=== PATIENT | female | born 1995 | race Caucasian/White ===

== ENCOUNTER 2019-07-18 00:21 | Emergency (ER) | payer OTHER ==
--- NOTE | 2019-07-18 03:03 | ED ---
Complex/Multi-Sys Presentation - HPI Summary HPI Summary: 24 year old F referred to [facility] by director of health education nurse at [facility] complains of dizziness described as room spinning, nasal congestion, pressure in her head, frontal headache since Tuesday07/14/19. Patient reports nausea since 2 nights ago and 1 night ago. She reports decreased appetite. Patient denies fever, vomiting, burning with urination, visual changes. The patient rates the pain 5/ 10 in severity. Symptoms aggravated by nothing. Symptoms alleviated by Sudafed and Tylenol. Patient states she spoke to an director of health education nurse at [facility] who referred her to the ED. Patient states she has an IUD. PMHx: asthma, seasonal allergies, GERD, and adult acne. - History Of Current Complaint Chief Complaint: EDFluSymptoms Time Seen by Provider: 07/18/19 02:51 Onset/Duration: Lasting Days - 07/14/19, Still Present Timing: Constant Severity Currently: Moderate Aggravating Factor(s): Nothing Alleviating Factor(s): Sudafed, Tylenol - Allergies/Home Medications Allergies/Adverse Reactions: Allergies Allergy/AdvReac Type Severity Reaction Status Date / Time No Known Allergies Allergy Verified 07/18/19 00:28 PMH/Surg Hx/FS Hx/Imm Hx Respiratory History: Reports: Hx Asthma, Hx Seasonal Allergies GI History: Reports: Hx Gastroesophageal Reflux Disease - Surgical History Surgery Procedure, Year, and Place: lip procedure 2019 Infectious Disease History: No Infectious Disease History: Denies: Traveled Outside the [place] in Last 30 Days - Family History Known Family History: Positive: Hypertension - both parents, Other - paternal grandmother with cancer - Social History Alcohol Use: Occasionally Hx Substance Use: No Substance Use Type: Reports: None Hx Tobacco Use: No Smoking Status (MU): Never Smoked Tobacco Review of Systems Negative: Fever Negative: Blurred Vision Positive: Other - nasal congestion Positive: Other - decreased appetite. Negative: Vomiting Negative: burning Neurological: Other - Dizziness, pressure in her head, frontal headache All Other Systems Reviewed And Are Negative: Yes Physical Exam - Summary Physical Exam Summary: General: Well-developed, Well-nourished FEMALE. No acute distress. HEENT: Positive frontal and maxillary sinus pressure Eyes: Conjuctiva normal, PERRL. Ears: TMs within normal limits. Nares: (-) discharge, (-) erythema. Oropharynx: Clear, mucous membranes moist, (-) exudates. Neck: Soft, FROM, (-) lymphadenopathy, (-) thyromegaly, (-) JVD. Cardiovascular: Normal sinus rhythm, (-) murmur. Lungs: Clear to auscultation bilaterally (-) wheezes, (-) rales, (-) rhonchi. Abdomen: Soft, non-tender, non-distended, (-) organomegaly, normal bowel sounds. Back: (-) CVA tenderness Extremities: No edema. Skin: Warm, dry, (-) rash. Neuro: Alert and oriented x3, no focal deficits. Psychiatric: Mood normal, affect normal. Triage Information Reviewed: Yes Vital Signs On Initial Exam: Initial Vitals Temp Pulse Resp BP Pulse Ox 97.6 F 82 18 141/90 99 07/18/19 00:24 07/18/19 00:24 07/18/19 00:24 07/18/19 00:24 07/18/19 00:24 Vital Signs Reviewed: Yes Diagnostics - Vital Signs Vital Signs Temp Pulse Resp BP Pulse Ox 07/18/19 02:51 97.7 F 07/18/19 02:49 72 116/77 100 07/18/19 00:24 97.6 F 82 18 141/90 99 - Laboratory Lab Statement: Any lab studies that have been ordered have been reviewed, and results considered in the medical decision making process. Complex Multi-Symp Course/Dx Course Of Treatment: 24 year old F referred to [facility] by director of health education nurse at [facility] complains of dizziness described as room spinning, nasal congestion, pressure in her head, frontal headache since Tuesday07/14/19. Patient reports nausea since 2 nights ago and 1 night ago. She reports decreased appetite. Patient denies fever, vomiting, burning with urination, visual changes. Physical exam findings: Positive frontal and maxillary sinus pressure. In the ED course, the patient was given azithromycin 500 mg PO. The ptient will be discharged home with prescription for Z-pack and follow up from [facility] in 3 days. Patient was instructed to return to Emergency Department for new or worsening symptoms. Patient understands and is agreeable to this plan. - Diagnoses Provider Diagnoses: Sinus infection Discharge ED - Sign-Out/Discharge Documenting (check all that apply): Patient Departure - Discharge Patient Received Moderate/Deep Sedation with Procedure: No - Discharge Plan Condition: Stable Disposition: HOME Prescriptions: Azithromycin TAB* [Zithromax TAB (Z-MINDI) 250 mg #6 tabs] 250 mg PO DAILY #4 tab Patient Education Materials: Sinusitis (ED) Referrals: [facility] [Provider Group] - 3 Days Additional Instructions: Please follow up with [facility] within 3 days. Please return to Emergency Department for any new or worsening symptoms. - Billing Disposition and Condition Condition: STABLE Disposition: Home - Attestation Statements Document Initiated by Scribe: Yes Documenting Scribe: Ina Tineo Provider For Whom Debbiee is Documenting (Include Credential): Giulia Woo MD Scribe Attestation: IIna, scribed for Giulia Woo MD on 07/18/19 at 0559. Scribe Documentation Reviewed: Yes Provider Attestation: The documentation as recorded by the scribeIna accurately reflects the service I personally performed and the decisions made by me, Giulia Woo MD Status of Scribe Document: Viewed
[2019-07-18] MEDS ORDERED: Azithromycin TAB* 250 MG PO ONE (04:00)
[2019-07-18 04:13] VITALS: BP 112/71
== END 2019-07-18 04:12 | disposition home or self-care (01) ==
LOC: ED 00:21
DX: J32.9 Chronic sinusitis, unspecified (principal); J45.909 Unspecified asthma, uncomplicated; K21.9 Gastro-esophageal reflux disease without esophagitis
CPT/HCPCS: 99282; A9270-GY

== ENCOUNTER 2019-07-19 14:47 | Emergency (ER) | payer OTHER ==
[2019-07-19 15:16] VITALS: BP 129/70
[2019-07-19] MEDS ORDERED: Meclizine TAB* 12.5 MG PO ONE ×3 (15:22→16:40)
--- NOTE | 2019-07-19 15:57 | UC ---
Dizzy HPI HPI Summary: 24-year-old woman comes in with a chief complaint of dizziness. Patient's had sinusitis versus respiratory tract infection symptoms for about a week. She has runny nose that initially was green now it's going more clear. She's has bilateral ear pressure. Started with dizziness last couple of days. She gets a spinning dizziness primarily when she moves her head. At this time she has some dizziness at rest. No difficulty with vision or speech. No focal area of weakness. Patient has had some tingling feeling on the top of her tongue. The dizziness was bad enough in the emt intermediate of July 18, 2019 yesterday that she went to the emergency department at about 2 AM. She was diagnosed with sinusitis there and treated with Clive azithromycin. Dizziness has continued and feels like it's gotten worse. Just prior to arrival when she was walking she felt very ill from the dizziness and her friend said that she was very pale. - History Of Current Complaint Chief Complaint: UCDizziness Stated Complaint: VERTIGO Time Seen by Provider: 07/19/19 15:22 Hx Last Menstrual Period: IUD, Pain Intensity: 1 - Allergies/Home Medications Allergies/Adverse Reactions: Allergies Allergy/AdvReac Type Severity Reaction Status Date / Time Penicillins Allergy Severe eye Verified 07/19/19 15:12 swelling Home Medications: Home Medications Pseudoephedrine TAB* [Sudafed TAB*] 30 mg PO DAILY 07/19/19 [History Confirmed 07/19/19] Ranitidine HCl (Nf) [Zantac] 75 mg PO DAILY 07/19/19 [History Confirmed 07/19/19 ] guaiFENesin ER TAB [Mucinex*] 1 tab PO DAILY 07/19/19 [History Confirmed ] PMH/Surg Hx/FS Hx/Imm Hx Previously Healthy: Yes - Surgical History Surgical History: Yes Surgery Procedure, Year, and Place: lip procedure 2018 - Family History Known Family History: Positive: Hypertension - both parents, Other - paternal grandmother with cancer - Social History Alcohol Use: Occasionally Substance Use Type: None Smoking Status (MU): Never Smoked Tobacco Review of Systems All Other Systems Reviewed And Are Negative: Yes Constitutional: Positive: Other - SEE HPI Skin: Positive: Negative Eyes: Positive: Negative ENT: Positive: Ear Ache, Nasal Discharge, Sinus Congestion, Sinus Pain/ Tenderness Respiratory: Positive: Negative Cardiovascular: Positive: Negative Gastrointestinal: Positive: Other - SEE HPI Motor: Positive: Negative Neurovascular: Positive: Negative Musculoskeletal: Positive: Negative Neurological: Positive: Other - SEE HPI Psychological: Positive: Negative Is Patient Immunocompromised?: No Physical Exam Triage Information Reviewed: Yes Appearance: Well-Appearing, No Pain Distress, Well-Nourished Vital Signs: Initial Vital Signs Temp 98.7 F 07/19/19 15:01 Pulse 93 07/19/19 15:01 Resp 16 07/19/19 15:01 BP 125/67 07/19/19 15:01 Pulse Ox 100 07/19/19 15:01 Vital Signs Reviewed: Yes Eye Exam: Normal Eyes: Positive: Conjunctiva Clear, Other: - PERRLA EOMI no photophobia. No nystagmus at rest on exam. Eye movement did make the dizziness worse. ENT: Positive: Pharyngeal erythema, Nasal congestion, TMs normal Neck: Positive: Supple Respiratory: Positive: Lungs clear, Normal breath sounds, No respiratory distress Cardiovascular: Positive: RRR Musculoskeletal: Positive: Strength Intact, ROM Intact Neurological: Positive: Alert, Muscle Tone Normal, Other: - No focal neurologic deficit. Normal finger to nose normal [id number]. Psychological: Positive: Age Appropriate Behavior Skin Exam: Normal Dizzy Course/Dx - Course Course Of Treatment: In clinic the patient received meclizine 25 mg by mouth with improvement of symptoms. She did still feel dizzy but not as bad as before. She has no focal neurologic deficit she has no nystagmus at rest she has normal finger to nose and heel to reynolds. She has sinusitis symptoms with ear pressure which takes peripheral vertigo is most likely diagnosis. She does report dizziness at rest which is potentially concerning for stroke however otherwise she has no other risk factors or symptoms of a cerebellar stroke. I did discuss vertigo related to cerebellar stroke with the patient. Follow-up with [facility]. We discussed that if she did not improve or if she worsens she needed further evaluation in the emergency department. - Differential Dx/Diagnosis Provider Diagnosis: Vertigo, Sinusitis Discharge ED - Sign-Out/Discharge Documenting (check all that apply): Patient Departure All imaging exams completed and their final reports reviewed: No Studies - Discharge Plan Condition: Stable Disposition: HOME Prescriptions: DOXYcycline CAP(*) [DOXYcycline 100MG CAP(*)] 100 mg PO BID #20 cap Fluticasone NASAL SPRAY 50MCG* [Flonase NASAL SPRAY 50MCG*] 2 spray BOTH NARES DAILY #1 btl Meclizine HCl [Motion Sickness Relief] 25 mg PO Q6HR PRN #20 tablet PRN Reason: Dizziness Patient Education Materials: Sinusitis (ED), Vertigo (ED) Forms: *School Release Referrals: Flo Jin MD [Primary Care Provider] - On License Of [facility] [Provider Group] Additional Instructions: FO[facility] UP [facility] IF NOT COMPLETELY IMPROVED. GO TO THE EMERGENCY DEPARTMENT IF YOUR CONDITION WORSENS; DEHYDRATION, WEAKNESS , NUMBNESS, SIGNS OF A STROKE OR ANY QUESTIONS OR CONCERNS. - Billing Disposition and Condition Condition: STABLE Disposition: Home
== END 2019-07-19 16:52 | disposition home or self-care (01) ==
LOC: UCEAST 14:47
DX: R42 Dizziness and giddiness (principal); J32.9 Chronic sinusitis, unspecified; Z88.0 Allergy status to penicillin
CPT/HCPCS: 99212; A9270-GY; G0463